=== PATIENT | female | born 1970 | race African-American/Black ===

== ENCOUNTER 2017-04-03 17:55 | Emergency (ER) | payer OTHER ==
[~2017-04-03] VITALS: Ht 167.6 cm; Wt 83.5 kg
[~2017-04-03 17:55] MED LIST: BYSTOLIC 5 MG5 M1 PO; IBUPROFEN 800800 M1 PO
[2017-04-03 18:01] VITALS: BP 156/92
[2017-04-03] MEDS ORDERED: IBUPROFEN 600600 M1 PO (18:42)
[2017-04-03] MEDS ORDERED: TIZANIDINE HCL4 MG PO (18:42)
== END 2017-04-03 18:59 | disposition home or self-care (01) ==
LOC: ER 17:55
DX: S29.012A Strain of muscle and tendon of back wall of thorax, initial encounter (principal); I10 Essential (primary) hypertension; Z88.5 Allergy status to narcotic agent; V89.2XXA Person injured in unspecified motor-vehicle accident, traffic, initial encounter; Y93.I9 Activity, other involving external motion; Y92.89 Other specified places as the place of occurrence of the external cause; Y99.8 Other external cause status